=== PATIENT | male | born 1965 | race American Indian/Alaskan Native ===

== ENCOUNTER 2017-10-23 18:58 | Emergency (ER) | payer BC ==
[2017-10-23 19:12] VITALS: BMI 27.8
[2017-10-23 19:15] VITALS: RESP 18; TEMP 98.2
--- NOTE | 2017-10-23 19:17 | ED PDOC ---
Arrival/HPI - General Time Seen by Provider: 10/23/17 19:10 Historian: Patient - History of Present Illness Narrative History of Present Illness (Text): 10/23/17 19:13 52 year old male, pmh including gout, nkda, complaining of lt. ankle pain and swelling x 2 days with no fall or trauma. Aching pain, painful to walk, no pain medication taken at home, no fever or chills, admits been drinking alcohol and red meat for the past 3 days, no urinary symptoms or penile discharge, no eye redness, no night sweat, no rash, no numbness or tingling, no other medical or psychological complaints. Past Medical History - Provider Review Nursing Documentation Reviewed: Yes Family/Social History - Physician Review Nursing Documentation Reviewed: Yes Family/Social History: Unknown Family HX Allergies/Home Meds Allergies/Adverse Reactions: Allergies No Known Allergies Allergy (Verified 10/23/17 19:12) Review of Systems - Review of Systems Constitutional: absent: Fatigue, Fevers Eyes: absent: Vision Changes ENT: absent: Hearing Changes Respiratory: absent: SOB, Cough Cardiovascular: absent: Chest Pain Gastrointestinal: absent: Abdominal Pain, Nausea, Vomiting Musculoskeletal: Arthralgias, Joint Swelling. absent: Back Pain, Neck Pain, Myalgias Skin: absent: Rash, Pruritis, Skin Lesions Neurological: absent: Headache, Dizziness Psychiatric: absent: Anxiety, Depression Physical Exam Vital Signs Reviewed: Yes Vital Signs Temp Pulse Resp BP Pulse Ox 10/23/17 22:10 87 18 135/82 96 10/23/17 20:58 90 18 148/88 95 10/23/17 19:14 98.2 F 111 H 18 163/101 H 95 Temperature: Afebrile Blood Pressure: Hypertensive Pulse: Tachycardic Respiratory Rate: Normal Appearance: Positive for: Well-Appearing, Non-Toxic Pain Distress: Severe Mental Status: Positive for: Alert and Oriented X 3 - Systems Exam Head: Present: Atraumatic, Normocephalic Pupils: Present: PERRL Extroacular Muscles: Present: EOMI Conjunctiva: Present: Normal Mouth: Present: Moist Mucous Membranes Neck: Present: Normal Range of Motion Respiratory/Chest: Present: Clear to Auscultation, Good Air Exchange. No: Respiratory Distress, Accessory Muscle Use Cardiovascular: Present: Regular Rate and Rhythm, Normal S1, S2, Other (no pedal edema). No: Murmurs Abdomen: Present: Normal Bowel Sounds. No: Tenderness, Distention, Peritoneal Signs Back: Present: Normal Inspection Upper Extremity: Present: Normal Inspection. No: Cyanosis, Edema Lower Extremity: Present: Normal Inspection, Other (LLE: mild +ttp on the lt. calf region and +ttp with mild swelling on the left ankle, no foot tenderness, no erythematous, no cellulitis or streaking, no ulcers, FROM without limitation , sensation intact, motor 5/5, +DPPT pulses, capillary refill< 2 seconds, neurovascular intact. ). No: Edema Neurological: Present: GCS=15, CN II-XII Intact, Speech Normal Skin: Present: Warm, Dry, Normal Color. No: Rashes Psychiatric: Present: Alert, Oriented x 3, Normal Insight, Normal Concentration Medical Decision Making ED Course and Treatment: 10/23/17 19:24 -labs -LLE venuous doppler -Lt. ankle xray -IV toradol/colchine 1.2mg po -observe and reassess 10/23/17 22:11 -Labs are non-significant except wbc 17.0, normal uric acid level. -Lt. ankle show no acute fracture or dislocation. -LLE venuous doppler: as per preliminary report, no acute DVT. -Pain decreased with the colchicine/toradol and repeat colchicine due to the history given by the patient. -Clinically this doesn't seem to be reactive arthiritis. Pt. evaluated by Dr. Kasper which we offered tap the lt. ankle joint for fluid study but the patient refused, refused to be admitted as the wbc is 17 which is very non- specific cause, lymes IGG and IGM ordered which clinical suspicious is very low at this time as he has no rash or bodyache, pt. stated that he had history of lymes disease in . -I offered admission but he declined. -I offered ankle joint tapping but he declined. -Pt. stated that he has to be at work 5am, stated that his left ankle pain decreased significantly, only concern to him is the lt. ankle is fracture or not. -I provided a copy of the lab work for the patient and advised him to repeat the labs in 2 days, advised him he can return to the ER anytime to continue his care. -AMA AMA ER The patient refuses to stay in the Emergency Room (ER) to continue the care and wishes to leave the emergency department against my medical advice. Patient was told that staying in the ER is necessary and a full explanation of the reasons why was given, and understood by the patient with alert and oriented x4. The risk of leaving were explained in laymans term and including but not limited to gout or other inflammatory joint disease, systemic inflammatory disease, leukemia, septic joint, organ failures, pain, emotional distress, worsening of condition, permanent disability and from an undiagnosed or untreated condition. The patient accepts these risks, able to repeat back and explain the risks and benefits, and is in my judgment is competent and capable of understanding the clinical situation and explanation of the risk of leaving. Patient was given the opportunity to ask questions and change mind. The patient was instructed regarding the best care for the present symptoms, and to follow up as soon as possible with the primary care doctor including specialist or return to the emergency department at any time for continuing care. -You leave the hospital against medical advice, you are given indomethacin/ colchicine, wbc is 17 with repeat 17.7, julissa wrap, crutches, follow up with your own pmd/hematology and oncology and orthopedic within 2 days, return to the ER for any new or worsening signs or symptoms. - Lab Interpretations Lab Results: 10/23/17 21:45 10/23/17 19:30 Lab Results 10/23/17 21:45: Lyme Disease IgG Ab (IFA) Negative, Lyme Disease IgM Ab Negative 10/23/17 21:45: WBC 17.7 H, RBC 4.46, Hgb 14.2, Hct 41.0 L, MCV 91.9, MCH 31.8, MCHC 34.6, RDW 13.6, Plt Count 293, MPV 10.3, Gran % 77.7 H, Lymph % (Auto) 13.2 L, Tillman % (Auto) 8.4 H, Eos % (Auto) 0.5 L, Baso % (Auto) 0.2, Gran # 13.78 H, Lymph # (Auto) 2.4, Tillman # (Auto) 1.5 H, Eos # (Auto) 0.1, Baso # (Auto ) 0.04 10/23/17 19:30: WBC 17.0 H, RBC 4.57, Hgb 14.4, Hct 41.8 L, MCV 91.5, MCH 31.5, MCHC 34.4, RDW 13.7, Plt Count 306, MPV 10.2, Gran % 78.5 H, Lymph % (Auto) 12.4 L, Tillman % (Auto) 8.2 H, Eos % (Auto) 0.7 L, Baso % (Auto) 0.2, Gran # 13.36 H, Lymph # (Auto) 2.1, Tillman # (Auto) 1.4 H, Eos # (Auto) 0.1, Baso # (Auto ) 0.04 10/23/17 19:30: Sodium 139, Potassium 4.3, Chloride 103, Carbon Dioxide 23, Anion Gap 17, BUN 18, Creatinine 1.1, Est GFR ( Amer) > 60, Est GFR (Non- Af Amer) > 60, Random Glucose 116 H, Uric Acid 8.0, Calcium 9.7, Total Bilirubin 0.4, AST 22, ALT 24, Alkaline Phosphatase 77, Total Protein 7.8, Albumin 4.5, Globulin 3.3, Albumin/Globulin Ratio 1.4 - RAD Interpretation Radiology Orders: 10/23/17 19:18 ANKLE LEFT 3 VIEWS ROUTINE [RAD] Stat DUPLEX LOWER EXTRM VEIN LEFT [US] Stat Lt. ankle xray: no fracture or dislocation LLE Venuous Doppler: as per preliminary report, no acute DVT Staffing Consultant: Radiologist - Medication Orders Current Medication Orders: Discontinued Medications Colchicine (Colocrys) 1.2 mg PO STAT STA Stop: 10/23/17 19:19 Last Admin: 10/23/17 19:39 Dose: 1.2 mg Colchicine (Colocrys) 0.6 mg PO DAILY TORIBIO Colchicine (Colocrys) 0.6 mg PO STAT STA Stop: 10/23/17 21:00 Last Admin: 10/23/17 21:16 Dose: 0.6 mg Sodium Chloride (Sodium Chloride 0.9%) 1,000 mls @ 999 mls/hr IV .Q1H1M STA Stop: 02/25/18 21:00 Last Admin: 10/23/17 20:27 Dose: 999 mls/hr eMAR Start Stop Document 10/23/17 20:27 JOL (Rec: 10/23/17 20:27 JOL [id number]) Intravenous Solution Start Date 10/23/17 Start Time 20:27 End Date 10/23/17 End time 21:27 Total Infusion Time 60 Ketorolac Tromethamine (Toradol) 30 mg IVP STAT STA Stop: 10/23/17 19:19 Last Admin: 10/23/17 19:38 Dose: 30 mg MAR Pain Assessment Document 10/23/17 19:38 JOL (Rec: 10/23/17 19:39 JOL [id number]) Pain Reassessment Is this a pain reassessment? No Sleep Is patient sleeping during reassessment? No Presence of Pain Presence of Pain Yes Pain Scale Used Pain Scale Used Numeric Location Pain Location Body Site Foot IVP Administration Document 10/23/17 19:38 JOL (Rec: 10/23/17 19:39 JOL [id number]) Charges for Administration # of IVP Administrations 1 - PA / [employer] / Resident Statement / has reviewed & agrees with the documentation as recorded. / has examined the patient and agrees with the treatment plan. Disposition/Present on Arrival - Present on Arrival Any Indicators Present on Arrival: No History of DVT/PE: No History of Uncontrolled Diabetes: No Urinary Catheter: No History of Decub. Ulcer: No - Disposition Have Diagnosis and Disposition been Completed?: Yes Diagnosis: Ankle pain, Leukocytosis Disposition: AGAINST MEDICAL ADVICE Disposition Time: 19:25 Patient Plan: Other Condition: STABLE Additional Instructions: -You leave the hospital against medical advice, you are given indomethacin/ colchicine, wbc is 17 with repeat 17.7, julissa wrap, crutches, follow up with your own pmd/hematology and oncology and orthopedic within 2 days, return to the ER for any new or worsening signs or symptoms. Prescriptions: Colchicine [Colcrys] 0.6 mg PO BID #10 tab Indomethacin [Indocin] 50 mg PO TID PRN #40 cap PRN Reason: Other Referrals: Olya Carreno MD [Staff Provider] - Follow up with primary Sen Gallegos DO [Staff Provider] - Follow up with primary Kaycee Craft MD [Staff Provider] - Follow up with primary Forms: WORK NOTE
[2017-10-23 19:49] LABS: ALB/GLOB RATIO 1.4 (1.1-1.8); ALBUMIN 4.5 g/dL (3.0-4.8); ALT/SGPT 24 U/L (7-56); AST/SGOT 22 U/L (17-59); BLOOD UREA NITROGEN 18 mg/dL (7-21); CALCIUM 9.7 mg/dL (8.4-10.5); GFR AFRICAN-AMERICAN > 60; GFR NON-AFRICAN AMERICAN > 60
[2017-10-23 19:54] LABS: BASO # 0.04 K/mm3 (0.0-2.0); BASO % 0.2 % (0.0-3.0); EOS # 0.1 (0.0-0.7); EOS % 0.7 % (1.5-5.0); GRAN # 13.36 (1.4-6.5); GRAN % 78.5 % (50.0-68.0); HEMOGLOBIN 14.4 g/dL (14.0-18.0); LYMPH # 2.1 (1.2-3.4); LYMPH % 12.4 % (22.0-35.0); MEAN CELL VOLUME 91.5 fl (80.0-105.0); MEAN CORPUSCULAR HEMOGLOBIN 31.5 pg (25.0-35.0); MEAN CORPUSCULAR HGB CONC 34.4 g/dl (31.0-37.0); MEAN PLATELET VOLUME 10.2 fl (7.0-11.0); MONO # 1.4 (0.1-0.6); MONO % 8.2 % (1.0-6.0); RBC 4.57 10^6/uL (3.5-6.1); RED CELL DISTRIBUTION WIDTH 13.7 % (11.5-14.5)
[2017-10-23] MEDS ORDERED: Sodium Chloride 0.9% 1,000 ML IV STA (20:00)
[2017-10-23 21:58] LABS: BASO # 0.04 K/mm3 (0.0-2.0); BASO % 0.2 % (0.0-3.0); EOS # 0.1 (0.0-0.7); EOS % 0.5 % (1.5-5.0); GRAN # 13.78 (1.4-6.5); GRAN % 77.7 % (50.0-68.0); HEMOGLOBIN 14.2 g/dL (14.0-18.0); LYMPH # 2.4 (1.2-3.4); LYMPH % 13.2 % (22.0-35.0); MEAN CELL VOLUME 91.9 fl (80.0-105.0); MEAN CORPUSCULAR HEMOGLOBIN 31.8 pg (25.0-35.0); MEAN CORPUSCULAR HGB CONC 34.6 g/dl (31.0-37.0); MEAN PLATELET VOLUME 10.3 fl (7.0-11.0); MONO # 1.5 (0.1-0.6); MONO % 8.4 % (1.0-6.0); RBC 4.46 10^6/uL (3.5-6.1); RED CELL DISTRIBUTION WIDTH 13.6 % (11.5-14.5); WHITE BLOOD COUNT 17.7 10^3/ul (4.5-11.0)
[2017-10-23 22:41] VITALS: BP 135/82; PULSE 87; O2SAT 96
--- NOTE | 2017-10-24 08:48 | RAD ---
PROCEDURE: Left Ankle Radiographs. HISTORY: lt. ankle pain x 2 days COMPARISON: None FINDINGS: BONES: Normal. No fracture. JOINTS: Normal. No osteoarthritis. Ankle mortise maintained. Talar dome intact SOFT TISSUES: Mild soft tissue swelling OTHER FINDINGS: None. IMPRESSION: No evidence of acute fracture or dislocation.
--- NOTE | 2017-10-24 09:34 | US ---
PROCEDURE: Left lower extremity venous US HISTORY: Leg pain and swelling. Evaluate for DVT. PHYSICIAN(S): Saturnino Morris MD. TECHNIQUE: Duplex sonography and color-flow Doppler with graded compression were used to evaluate the deep venous system of the left lower extremity. FINDINGS: The visualized deep venous system of the left lower extremity is sonographically normal and compressible. Normal wave forms and augmentation are seen. There is no sonographic evidence for deep venous thrombosis in the visualized segments of the left lower extremity. IMPRESSION: 1. No sonographic evidence for deep venous thrombosis in the visualized segments of the left lower extremity.
[2017-10-25 17:15] LABS: LYME IGM NEGATIVE (NEGATIVE)
[2017-10-25 17:17] LABS: LYME IGG NEGATIVE (NEGATIVE)
== END 2017-10-23 22:15 | disposition left against medical advice (07) ==
LOC: ED 18:58
DX: M25.572 Pain in left ankle and joints of left foot (principal); D72.829 Elevated white blood cell count, unspecified
CPT/HCPCS: 73610; 80053; 84550; 85025; 86618; 93971; 96361; 96374; 99285; J1885; J7040